=== PATIENT | male | born 1985 | race Caucasian/White ===

== ENCOUNTER 2019-08-25 07:45 | Day surgery (SDC) | payer BC ==
[~2019-08-25] VITALS: Ht 177.8 cm; Wt 88.5 kg
[~2019-08-25 07:45] MED LIST: TUMS200 MG PO; TYLENOL EXTRA500 MG PO
[2019-08-25] MEDS ORDERED: HYDROCODON-ACE1 EA11 PO (09:46)
[2019-08-25] MEDS ORDERED: GABAPENTIN300 MG PO (09:47)
--- NOTE | 2019-08-25 09:53 | NUR ---
08/25/19 0953 Abi Nagel 0947 PATIENT ARRIVES TO PACU UNRESPONSIVE TO PAIN, ORAL AIRWAY IN PLACE. MASK AT 6 LITERS. 0949 ORAL AIRWAY REMOVED BY ASSESSMENT MANAGER. 0950 PATIENT UNRESPONSIVE TO PAIN. RESP EVEN AND UNLABORED, MASK CONTINUED AT 6 LITERS.
--- NOTE | 2019-08-25 10:30 | NUR ---
PATIENT BACK TO ROOM, ICE IN PLACE. DRESSING TO LEFT KNEE C/D/I. PATIENT APPEARS DROWSY, ANSWERING QUETIONS, AWAKE ON AND OFF. REPORTS PAIN 2/10 ON PAIN SCALE. ICE WATER PROVIDED. CALL LIGHT WITHIN REACH. NO OTHER NEEDS AT THIS TIME.
--- NOTE | 2019-08-25 11:30 | NUR ---
PATIENT REPORTS PAIN WELL CONTROLLED, DENIES NEED FOR PAIN MEDICAITON. DRESSING C/D/I WITH ICE IN PLACE. PATIENT SELF REMOVED SCDS AND REPORTS FEELS LIKE HE COULD GET UP AT ANYTIME. PROVIDED EDUCATION, PATIENT TOLERATED AMBULATING TO BATHROOM. PROVIDED WITH CRACKERS.
--- NOTE | 2019-08-25 12:00 | NUR ---
CALL TO PATIENT TO PLAN FOR PICKING UP PATIENT. PATIENT MEETING CRITERIA, REMOVED PATIENT IV, CATH INTACT. REPORTS PAIN INTACT 3/10, TOLERABLE WITH ACTIVITY. PATIENT SELF DRESSED.
--- NOTE | 2019-08-25 12:40 | NUR ---
PROVIDED PATIENT WITH DISCHARGE EDUCATION. PATIENT VERBALIZED UNDERSTANDING. READ DR. SUAREZ PACKET TO PATIENT, AND ANSWERED QUESTIONS AND CONCERNS. PATIENT PROVIDED WHEELCHAIR RIDE TO FRONT, TOLERATED TRANSFERING IN TO POV STEADY.
--- NOTE | 2019-08-28 07:26 | OR ---
[facility] [address] [place], [place] [address] Signed DATE OF OPERATION: 08/25/2019 SURGEON: Ann Cadena MD PREOPERATIVE DIAGNOSIS: Medial meniscus tear, left knee. POSTOPERATIVE DIAGNOSIS: Medial meniscus tear, left knee. PROCEDURE PERFORMED: Left knee arthroscopy with partial medial meniscectomy. NEUROSCIENCE SPECIALIST: None. ANESTHESIA: General. BLOOD LOSS: Minimal. BRIEF HISTORY: Vic is a 34-year-old gentleman, works as an electrician control equipment. He developed pain and locking in his knee. MRI was consistent with a fairly sizable horizontal tear of the posteromedial meniscus. Risks and benefits of operative treatment were discussed with him. He elected to proceed. DESCRIPTION OF PROCEDURE: Once consent was obtained, he was taken to the operating room and after adequate anesthesia, he was placed on operating room table, all downside pressure points well padded. The right leg was flexed, abducted, and externally rotated on a well-padded leg mcmahan. Left was placed in well-padded leg mcmahan with no tourniquet. The leg was then prepped and draped in a standard sterile fashion after injecting the portal sites with 0.25% Marcaine under alcohol prep. A standard inferior lateral and superolateral portals were established and the scope was introduced into the knee. ARTHROSCOPIC FINDINGS: There is a moderate synovitis medially. Medial and lateral gutters were clear. The patella was noted to track well with no chondromalacia. The ACL and PCL were intact. Electronically Signed By: ANN CADENA MD 08/28/19 0726 PATIENT NAME: VIC HANSON OPERATIVE REPORT DATE OF : 85 REPORT #: [id number] PHYSICIAN: ANN CADENA MD PCP: NO PRIMARY CARE PHYSICIAN REPORT IS CONFIDENTIAL AND NOT TO BE RELEASED WITHOUT AUTHORIZATION [facility] [address] [place] [id number] Signed The lateral compartment was intact. Medial compartment showed a posterior meniscus tear in a horizontal fashion extending from the posterior horn all the way to the mid medial body. This was significantly unstable flap. The standard inferomedial portal was established and the straight and curved biters were used to trim the meniscus tears both the upper and lower leafs back to a stable rim. This was taken again from mid medial body all the way around posteriorly. The shaver was then used to evacuate all debris and smoothed meniscal transition zones. The scope was then withdrawn. Portals were closed with 3-0 nylon. He was allergic to ketorolac, so we injected 1 mL Kenalog 40. The wounds were closed with 3-0 nylon, dressed with Adaptic ABD and Lev wrap. He tolerated the procedure well. All sponge, needle, and instrument counts were correct. Ann Cadena MD BA/MECHEL /[id number] Copies: ~ Electronically Signed By: ANN CADENA MD 08/28/19 0726 PATIENT NAME: VIC HANSON JAMARCUS OPERATIVE REPORT DATE OF : 85 REPORT #: [id number] PHYSICIAN: ANN CADENA MD PCP: NO PRIMARY CARE PHYSICIAN REPORT IS CONFIDENTIAL AND NOT TO BE RELEASED WITHOUT AUTHORIZATION
== END 2019-08-25 12:45 | disposition home or self-care (01) ==
LOC: DS 07:45
PROVIDERS: Specialist
PROC: 0SBD4ZZ Excision of Left Knee Joint, Percutaneous Endoscopic Approach (ICD-10-PCS; principal; 2019-08-25 10:30)
DX: S83.242A Other tear of medial meniscus, current injury, left knee, initial encounter (principal); M65.862 Other synovitis and tenosynovitis, left lower leg; Z79.899 Other long term (current) drug therapy
CPT/HCPCS: J0690; J1100; J2001; J2250; J2405; J2704; J3301; J7121

== ENCOUNTER 2020-05-23 08:06 | Day surgery (SDC) | payer BC ==
[~2020-05-23] VITALS: Ht 177.8 cm; Wt 93.6 kg
[~2020-05-23 08:06] MED LIST changes: +GABAPENTIN300 MG PO; +HYDROCODON-ACE1 EA11 PO
--- NOTE | 2020-05-23 09:29 | NUR ---
05/23/20 0929 Xochitl Cadena 0922 PT TO PACU AWAKE AND TALKING DENIES PAIN
--- NOTE | 2020-05-24 12:44 | OR ---
[facility] [address] [place], [place] [address] Signed DATE OF OPERATION: 05/23/2020 SURGEON: Rosie Nunes MD PREOPERATIVE DIAGNOSES: 1. Gastroesophageal reflux disease. 2. Mild esophageal dysphagia, hard boiled eggs. 3. Father with history of cancerous Naranjo esophagus requiring esophagectomy at the [facility]. 4. Daily alcohol intake with one or two beers. POSTOPERATIVE DIAGNOSES: 1. Mild diffuse gastritis. 2. Small hiatal hernia (41-38 cm). 3. No evidence of Naranjo esophagus. PROCEDURE: Esophagogastroduodenoscopy with CLOtest and biopsies of the pyloric bulb, antrum, and GE junction. ESTIMATED BLOOD LOSS: None. INDICATIONS: Vic is a 35-year-old gentleman, whose father happens to be a retired nurse contact lens fitter. He had developed Naranjo esophagus apparently containing cancer. He went up to the [facility] and underwent an esophagectomy with gastric pull-through. He is doing well in the life to this day. Vic himself experiences some level of acid reflux. He also describes having some trouble intermittently with swallowing hard boiled eggs. He currently takes no medication for acid reflux or his stomach. He said he can stay away from spicy foods and not eat too late at night. He does fine. He does like a couple of beers each night after work. He noticed that hard boiled eggs gets stuck once in a while. Consequently, he brought it up to his primary care provider. He was asked to see me with respect to the above. He was sent for a barium swallow. There was no evidence of any stricture or hiatal hernia. He had mild reflux during the test. He had very minimal decreased motility mainly in the prone position. He comes today for the upper endoscopy. He was given a pamphlet on upper endoscopy in the office. He understands upper endoscopy quite well. He knows there is risk including, but not limited to gas bloating, crampy abdominal pain, bleeding, perforation requiring surgery, and missed diagnosis. He also understands the need for Electronically Signed By: ROSIE NUNES MD 05/24/20 0731 PATIENT NAME: VIC HANSON RAY OPERATIVE REPORT DATE OF : 85 REPORT #: [id number] PHYSICIAN: ROSIE NUNES MD PCP: BRANDON ANDRADE MD REPORT IS CONFIDENTIAL AND NOT TO BE RELEASED WITHOUT AUTHORIZATION [facility] [address] [place] [id number] Signed IV conscious sedation. He had expressed understanding and wished to proceed. DESCRIPTION OF PROCEDURE: Vic was taken into our endoscopy suite and placed in a supine semi-recumbent position. He was given 6 mg of Versed and 100 mcg of fentanyl. The posterior oropharynx was anesthetized with Hurricaine spray. A bite block was utilized for the case. The adult gastroscope was introduced and advanced out into the third portion of the duodenum without difficulty. The duodenum was unremarkable. Very minimal irritation in the pyloric bulb. We went and took a biopsy of the pyloric bulb for pathologic review. The stomach showed some very mild erythematous changes, again no ulcerations. We took a biopsy of the antrum for pathologic review as well as CLOtest. Upon retroflexion of scope it looks like he does have just a small hiatal hernia. The scope was then withdrawn up through the area of GE junction, which was compliant without stricture. He was a little awake during the procedure, but we measured out the hiatal hernia from 41 cm back to approximately 38 cm. He has mild disruption to the Z-line, but no Naranjo mucosa. We went and took a biopsy right along the edge of the Z-line for pathologic review. The distal, middle, and upper esophagus were unremarkable. After this, the gas was suctioned out and the gastroscope removed. Vic tolerated the procedure quite well. RECOMMENDATIONS: I will see Vic back in my office in 7 to 14 days to review the results of the barium swallow and his upper endoscopy. Rosie Nunes MD [facility]/MODL /[id number] cc: MD Brandon Jamison MD Copies: ROSIE NUNES MD Electronically Signed By: ROSIE NUNES MD 05/24/20 0731 PATIENT NAME: VIC HANSON OPERATIVE REPORT DATE OF : 85 REPORT #: [id number] PHYSICIAN: ROSIE NUNES MD PCP: BRANDON ANDRADE MD REPORT IS CONFIDENTIAL AND NOT TO BE RELEASED WITHOUT AUTHORIZATION [address] [address] Signed BRANDON ANDRADE MD ~ Electronically Signed By: ROSIE NUNES MD 05/24/20 0731 PATIENT NAME: VIC HANSON JAMARCUS OPERATIVE REPORT DATE OF : [birth year] REPORT #: [id number] PHYSICIAN: ROSIE NUNES MD PCP: BRANDON ANDRADE MD REPORT IS CONFIDENTIAL AND NOT TO BE RELEASED WITHOUT AUTHORIZATION
--- NOTE | 2020-05-24 17:36 | PATH ---
[facility] [address] [place], [place] [address] Signed SPECIMEN(S): A DUODENAL BULB BIOPSY SPECIMEN(S): B ANTRUM/PYLORUS BIOPSY SPECIMEN(S): C GE JUNCTION SPECIMEN SOURCE: A. DUODENAL BULB BIOPSY B. ANTRUM/PYLORUS BIOPSY C. GE JUNCTION CLINICAL HISTORY: Reflux, dysphagia. Postop: Gastritis, hiatal hernia. MICROSCOPIC DESCRIPTION: Histologic sections of all submitted blocks are examined by light microscopy. These findings, together with the gross examination, support the pathologic diagnosis. FINAL PATHOLOGIC DIAGNOSIS: A. Duodenal bulb biopsy: - Benign duodenal mucosa with focal slight chronic inflammation. B. Antrum / pylorus biopsy: - Benign gastric-type mucosa with focal slight chronic inflammation. - Negative for evidence of Helicobacter organisms on routine HE stained sections. C. GE junction, biopsy: - Benign esophageal mucosa with reactive features and mild to moderate chronic inflammation. - Negative for specialized intestinal metaplasia and dysplasia. JVR:[facility]:C2NR GROSS DESCRIPTION: Three specimens are received in three containers, labeled "TS." A. The specimen, labeled "TS, 1," and designated on the requisition "duodenal bulb," is received in formalin and consists of one lamb soft tissue fragment that measures 0.3 cm in greatest dimension. The specimen is entirely submitted in cassette (A1). B. The specimen, labeled "TS, 2," and designated on the requisition "antrum/pylorus," is received in formalin and consists of one lamb soft tissue fragment that measures 0.5 cm in greatest dimension. The specimen is entirely submitted in cassette (B1). C. The specimen, labeled "TS, 3," and designated on the requisition "GE junction,," is received in formalin and consists of one lamb soft tissue PATIENT NAME: ROSANGELA HANSON PATHOLOGY DATE OF : 85 REPORT #: [id number] PHYSICIAN: IVONE PATHOLOGY PCP: BRANDON ANDRADE MD REPORT IS CONFIDENTIAL AND NOT TO BE RELEASED WITHOUT AUTHORIZATION [facility] [address] [place], [place] [address] Signed fragment that measures 0.3 cm in greatest dimension. The specimen is entirely submitted in cassette (C1). AT (under the direct supervision of a pathologist) The Gross Description was prepared using a voice recognition system. The report was reviewed for accuracy; however, sound-alike word errors, addition and/or deletions may occur. If there is any question about this report, please contact Client Services. PERFORMING LABORATORY: The technical component was performed by [facility], [address] [place] [id number] (Payroll And Benefits Specialist: Danay Mccartney MD; CLIA# [id number]). Professional interpretation was performed by [facility], [address] [address]. Diagnostician: Dev Luis MD Pathologist Electronically Signed 05/24/2020 Copies: ~ PATIENT NAME: ROSANGELA HANSON PATHOLOGY DATE OF : 85 REPORT #: [id number] PHYSICIAN: IVONE BROWNLEE PCP: BRANDON ANDRADE MD REPORT IS CONFIDENTIAL AND NOT TO BE RELEASED WITHOUT AUTHORIZATION
== END 2020-05-23 09:55 | disposition home or self-care (01) ==
LOC: OPS 08:06 → DS 08:14 → OPS 09:45
PROVIDERS: ATTEND Colon & Rectal Surgery
PROC: 0DB68ZZ Excision of Stomach, Via Natural or Artificial Opening Endoscopic (ICD-10-PCS; principal; 2020-05-23 09:45)
DX: K21.00 Gastro-esophageal reflux disease with esophagitis, without bleeding (principal); K29.50 Unspecified chronic gastritis without bleeding; K44.9 Diaphragmatic hernia without obstruction or gangrene; K29.80 Duodenitis without bleeding; Z88.6 Allergy status to analgesic agent; Z80.0 Family history of malignant neoplasm of digestive organs
CPT/HCPCS: 86677; 99153; G0500; J2250; J3010; J7121

== ENCOUNTER 2020-08-23 08:20 | Day surgery (SDC) | payer BC ==
[~2020-08-23] VITALS: Ht 177.8 cm; Wt 88.6 kg
[~2020-08-23 08:20] MED LIST changes: +ALEVE220 MG PO
--- NOTE | 2020-08-23 11:21 | NUR ---
08/23/20 1121 Pema Peterson 1115- PT ARRIVES TO PACU EASILY AROUSABLE TO VOICE. FALLS INSTANTLY BACK TO SLEEP WHEN NOT BEING TALKED TO. RESP EVEN AND UNLABORED. OXYGEN SAT HIGH 90'S TO 100% ON 6L VIA MASK.
[2020-08-23] MEDS ORDERED: HYDROCODON-ACE1 EA10 PO (11:22)
--- NOTE | 2020-08-23 12:43 | NUR ---
1145: PT ARRIVES TO DAY SURGERY FROM PACU VIA STRETCHER. AWAKE AND ORIENTED. VSS, RESP EVEN AND UNLABORED. REPORTS LAUREN LEVEL OF PAIN AND DENIES NAUSEA. LAUREN SMALL SIPS OF WATER. DRESSING C/D/I, CMS WNL. PT COMFORTABLE WITHOUT NEEDS. CALL LIGHT WITHIN REACH
--- NOTE | 2020-08-23 12:59 | NUR ---
HAS BEEN UPTO BR VOIDS QS. AMB WELL. DENIES DIZZINESS.
--- NOTE | 2020-08-23 14:34 | NUR ---
1300: PT DRESSES SELF INDEPENDENTLY FOR D/C. D/C INSTRUCTIONS PROVIDED AND DISCUSSED ORDERED. PT VOICES UNDERSTANDING AND DENIES QUESTIONS AND CONCERNS AT THIS TIME. 1310: WHEELED OFF OF UNIT FOR D/C VIA WC. RESP EVEN AND UNLABORED. NO PHYSICAL S/S OF DISTRESS AT THIS TIME
--- NOTE | 2020-08-26 07:04 | OR ---
[facility] [address] [place], [place] [address] Signed DATE OF OPERATION: 08/23/2020 SURGEON: Ann Cadena MD PREOPERATIVE DIAGNOSIS: Medial meniscus tear, left knee. POSTOPERATIVE DIAGNOSIS: Medial meniscus tear, left knee. PROCEDURE PERFORMED: Left knee arthroscopy with partial medial meniscectomy. CLINICAL MASSAGE THERAPIST: None. ANESTHESIA: General. BLOOD LOSS: None. BRIEF HISTORY: Vic is a 35-year-old gentleman with pain and instability in his knee. MRI was consistent with another posteromedial meniscus tear. Risks and benefits of operative treatment were discussed with him. He elected to proceed. DESCRIPTION OF PROCEDURE: Once consent was obtained, he was taken to the operating room, after adequate anesthesia he was placed on operating room table. The right leg was flexed, abducted, and externally rotated on a well-padded leg mcmahan. The left was placed in well-padded proximal thigh leg mcmahan with no tourniquet. The portal sites were pre-injected using 0.25% Marcaine with epinephrine under alcohol prep. The leg was then prepped and draped in a standard sterile fashion. Standard inferolateral and superolateral portal was made and the scope was introduced into the knee. ARTHROSCOPIC FINDINGS: The patellofemoral joint was intact. Medial lateral gutters were intact. Lateral compartment was completely intact with normal cartilage, normal meniscus. There was minimal synovitis throughout. PCL was intact and the ACL was noted to be frayed and Electronically Signed By: ANN CADENA MD 08/26/20 0704 PATIENT NAME: VIC HANSON OPERATIVE REPORT DATE OF : 85 REPORT #: [id number] PHYSICIAN: ANN CADENA MD PCP: BRANDON ANDRADE MD REPORT IS CONFIDENTIAL AND NOT TO BE RELEASED WITHOUT AUTHORIZATION [facility] [address] [place], [place] [address] Signed somewhat lengthened. The fibers were completely diastasis from each other like a normal ACL. It did take partial tension on the Javad's under direct visualization and palpation using the [place], but many of the fibers particularly in the anteromedial bundle were not really under any tension. The medial compartment showed no significant chondromalacia. There was an extensive horizontal tear of the meniscus from the posterior horn around the corner to the posteromedial side. DESCRIPTION OF THE OPERATION: Standard inferomedial portal was made after localization using a spinal needle. A combination of straight and curved biters were used to trim the meniscus back to a stable rim. The superior leaflet was left in place but foreshortened. The inferior leaflet was completely removed as were any fragments. This was smoothed using the shaver and then transitioned anteriorly in a feathering manner. Again, the ACL was visualized. There was nothing further to do for. We did withdrawal the scope and closed portals with 3-0 nylon. Exam under anesthesia showed a mild block but no significant pivot shift. The wound was dressed with Adaptic, ABD and Lev wrap. He tolerated the procedure well. All sponge, needle, and instrument counts were correct. Ann Cadena MD BA/MODL /[id number] Copies: ~ Electronically Signed By: ANN CADENA MD 08/26/20 0704 PATIENT NAME: VIC HANSON OPERATIVE REPORT DATE OF : 85 REPORT #: [id number] PHYSICIAN: ANN CADENA MD PCP: BRANDON ANDRADE MD REPORT IS CONFIDENTIAL AND NOT TO BE RELEASED WITHOUT AUTHORIZATION
== END 2020-08-23 13:10 | disposition home or self-care (01) ==
LOC: DS 08:20
PROVIDERS: ATTEND Specialist
PROC: 0SBD4ZZ Excision of Left Knee Joint, Percutaneous Endoscopic Approach (ICD-10-PCS; principal; 2020-08-23 10:45)
DX: S83.242A Other tear of medial meniscus, current injury, left knee, initial encounter (principal)
CPT/HCPCS: 01400; J0690; J1100; J2001; J2405; J2704; J3010; J7121